=== PATIENT | female | born 1985 | race Hispanic/Latino ===

== ENCOUNTER 2024-08-26 01:56 | Emergency (ER) | payer BC ==
[2024-08-26] MEDS ORDERED: Acetaminophen 500 MG TAB ONE (03:24)
[2024-08-26] MEDS ORDERED: Ibuprofen 800 MG TAB ONE (03:25)
[2024-08-26] MEDS ORDERED: tiZANidine HCl 4 MG TAB ONE (03:25)
== END 2024-08-26 05:07 | disposition home or self-care (01) ==
LOC: ERS 01:56
DX: M54.50 Low back pain, unspecified (principal); M54.2 Cervicalgia
CPT/HCPCS: 99283